=== PATIENT | male | born 1960 | race Hispanic/Latino ===

== ENCOUNTER → 2018-09-21 | Day surgery (SDC) | payer BC ==
[2018-09-19 12:12] LABS: BASOPHILS % 0.4 % (0.0-1.0); EOSINOPHILS # (AUTO) 0.2 (0.0-0.4); EOSINOPHILS % 1.9 % (0.0-6.0); HEMATOCRIT 43.5 % (38.2-49.6); HEMOGLOBIN 14.5 g/dL (14.0-18.0); LYMPHOCYTES # (AUTO) 2.7 (1.0-3.2); MEAN CORPUSCULAR HEMOGLOBIN 30.8 pg (28-32); MEAN CORPUSCULAR HGB CONC 33.3 g/dL (31-35); MEAN CORPUSCULAR VOLUME 92.4 fL (81-99); MONOCYTES # (AUTO) 0.8 (0.2-0.8); MONOCYTES % 9.3 % (4.4-11.3); NEUTROPHILS # (AUTO) 4.6 (2.1-6.9); PLATELET COUNT 179 x10e3/uL (140-360); RED BLOOD COUNT 4.71 x10e6/uL (4.3-5.7); RED CELL DISTRIBUTION WIDTH 13.2 % (11.7-14.4)
[2018-09-19 12:36] LABS: ANION GAP 15.1 mmol/L (8-16); BLOOD UREA NITROGEN 11 mg/dL (7-26); BUN/CREATININE RATIO 11 (6-25); CALCIUM 10.2 mg/dL (8.4-10.2); CARBON DIOXIDE 26 mmol/L (22-29); CHLORIDE 103 mmol/L (98-107); CREATININE, SERUM 0.97 mg/dL (0.72-1.25); EST GLOMERULAR FILTRATION RATE > 60 ML/MIN (60-); GLUCOSE 95 mg/dL (74-118); POTASSIUM 4.1 mmol/L (3.5-5.1); SODIUM 140 mmol/L (136-145)
[~2018-09-21] MED LIST: BROMFED DM COU118 ML; BUPIVACAINE 0.25%/EPI 30ML SDV INJ ONE; BUPIVACAINE HCL 0.5% INJ 30 ML VIAL INJ ONE; DEXAMETHASONE SOD PHOS INJ 4 MG/ML VIAL IV ONE; DONNATAL TABL16.2 MG; FENTANYL CITRATE/PF 100MCG/2 ML INJ ONE; HYOMAX SL; IBUPROFEN200 MG PO; KEFLEX500 MG PO; KETOROLAC TROMETHAMINE 30 MG/ML VIAL IV ONE; LEVAQUIN500 MG PO; LEVOXYL125 MCG PO; LIDOCAINE HCL 2% LOCAL INJ 5 ML SDV VIAL INJ ONE; LOVAZA1 GM PO; METRONIDAZOLE500 MG PO; MIDAZOLAM HCL 2 MG/2 ML VIAL ONE; NORCO 5-325 TA1 EACH PO; NORCO 7.5-3251 EACH PO; OMEPRAZOLE40 MG PO; ONDANSETRON HCL INJ 2 MG/ML VIAL IV ONE; PROPOFOL IV EMULSION 10 MG/ML 20 ML VIAL IV ONE; SEVOFLURANE INHAL SOLN 250 ML PEN BTL INH ONE; SUCRALFATE1 GM PO
--- NOTE | 2018-09-21 13:59 | Operative Report ---
DATE OF PROCEDURE: September 21, 2018 PREOPERATIVE DIAGNOSIS: Upper back sebaceous cyst and possible lipoma. POSTOPERATIVE DIAGNOSIS: Upper back sebaceous cyst and possible lipoma. OPERATIVE PROCEDURE: Excision sebaceous cysts and exploration of the right upper back. ANESTHESIA: General. INDICATIONS: The patient is a 57-year-old male with a history of a growing cysts in the right upper back. He also complains of pain behind the medial edge of the right scapula with pain and radiation to the right arm. Patient had consented for excision of a sebaceous cyst and possible removal of lipoma from the right scapula. DESCRIPTION OF PROCEDURE: The patient was brought to the OR and intubated. He was then repositioned to the left lateral decubitus with the right side up. The back was prepped with alcohol and draped in a sterile fashion. I made elliptical incisions, 5 x 3 cm around the sebaceous cyst extending down to the deep subcutaneous tissue. The cyst is completely removed without disruption. The wound is checked for bleeding point and we then cauterized. Hemostasis achieved. The deep subcutaneous tissue is placed for deep closure. Skin was closed with a 4-0 Vicryl. We also made linear incisions overlying the medial aspect of the right scapula where the raised mass is located. Dissection is carried down through the subcutaneous tissue down to the underlying fascia of the scapula muscle. No evidence of a lipoma or mass noted. At this point, the wound was irrigated. Bleeding points were cauterized. Hemostasis was achieved. Wound closure with deep subcutaneous tissue of 3-0 Vicryl and the skin with subcuticular stitch. Dermabond placed on skin. Dressing applied. The patient tolerated the procedure well. Was extubated and transported to the recovery room. Estimated blood loss 3 mL. Job#: [id number] OR
[2018-09-21 14:15] VITALS: BP 126/85
== END | disposition home or self-care (01) ==
LOC: OR 10:27
PROVIDERS: ATTEND Surgery
DX: L72.0 Epidermal cyst (principal); K21.9 Gastro-esophageal reflux disease without esophagitis; Z88.0 Allergy status to penicillin; Z01.810 Encounter for preprocedural cardiovascular examination; Z01.812 Encounter for preprocedural laboratory examination; Z87.891 Personal history of nicotine dependence
CPT/HCPCS: 11406; 12032; 17999; 36415; 80048; 85025; 88304; 93005; J1100; J1885; J2001; J2250; J2405; J2704